=== PATIENT | female | born 1995 | race American Indian/Alaskan Native ===

== ENCOUNTER 2017-10-28 09:11 | Emergency (ER) | payer MEDICAID ==
[2017-10-28 09:31] VITALS: BP 122/76; PULSE 75; RESP 16; TEMP 97.6; O2SAT 100
--- NOTE | 2017-10-28 12:12 | C.PDOC ---
History Of Present Illness 22 y/o female presents to ED with complaints of diffuse rash over face and ears for 3 days. Patient reports she started using new scented body wash 4-5 days ago and denies chest pain, sob, fever, chills, vomiting or any other complaints at this time. Chief Complaint (Nursing): Abnormal Skin Integrity History Per: Patient History/Exam Limitations: no limitations Onset/Duration Of Symptoms: Days Current Symptoms Are (Timing): Still Present Past Medical History Reviewed: Historical Data, Nursing Documentation, Vital Signs Vital Signs: Last Vital Signs Temp 97.6 F 10/28/17 09:23 Pulse 75 10/28/17 09:23 Resp 16 10/28/17 09:23 BP 122/76 10/28/17 09:23 Pulse Ox 100 10/28/17 12:12 - Medical History PMH: No Chronic Diseases Surgical History: No Surg Hx Family History: States: No Known Family Hx - Social History Hx Alcohol Use: No Hx Substance Use: No - Immunization History Hx Tetanus Toxoid Vaccination: No Hx Influenza Vaccination: No Hx Pneumococcal Vaccination: No Review Of Systems Constitutional: Negative for: Fever, Chills Cardiovascular: Negative for: Chest Pain Respiratory: Negative for: Shortness of Breath Gastrointestinal: Negative for: Nausea, Vomiting Skin: Positive for: Rash Neurological: Negative for: Weakness, Numbness Physical Exam - Physical Exam Appears: Non-toxic, No Acute Distress Skin: Warm, Dry, Rash (Mild maculopapular rash to face, ears and lower back ) Head: Atraumatic, Normacephalic Eye(s): bilateral: Normal Inspection Nose: Normal Oral Mucosa: Moist Tongue: Normal Appearing, No Swelling Lips: Normal Appearing, No Swelling Throat: Normal, No Erythema, No Exudate Neck: Normal ROM, Supple Chest: Symmetrical Cardiovascular: Rhythm Regular Respiratory: Normal Breath Sounds, No Rales, No Rhonchi, No Wheezing Extremity: Normal ROM, Capillary Refill (<2 seconds) Neurological/Psych: Oriented x3, Normal Speech, Normal Motor, Normal Sensation ED Course And Treatment O2 Sat by Pulse Oximetry: 100 (RA) Pulse Ox Interpretation: Normal Disposition - Disposition Referrals: Vipin Mcdonald [Medical Doctor] - Disposition: HOME/ ROUTINE Disposition Time: 09:50 Condition: GOOD Additional Instructions: Thank you for letting us take care of you today. The emergency medical care you received today was directed at your acute symptoms. If you were prescribed any medication, please fill it and take as directed. It may take several days for your symptoms to resolve. Return to the Emergency Department if your symptoms worsen, do not improve, or if you have any other problems. Please contact your doctor or call one of the physicians/clinics you have been referred to that are listed on the Patient Visit Information form that is included in your discharge packet. Bring any paperwork you were given at discharge with you along with any medications you are taking to your follow up visit. Our treatment cannot replace ongoing medical care by a primary care provider (PCP) outside of the emergency department. [facility]. Follow up with your doctor in 2-3 days for re-evaluation and further management. Prescriptions: predniSONE [Prednisone] 40 mg PO DAILY #10 tab Instructions: Urticaria (ED) Forms: Work Excuse - Clinical Impression Clinical Impression: Skin irritation - Scribe Statement The provider has reviewed the documentation as recorded by the Peter Abad All medical record entries made by the Peter were at my direction and personally dictated by me. I have reviewed the chart and agree that the record accurately reflects my personal performance of the history, physical exam, medical decision making, and the department course for this patient. I have also personally directed, reviewed, and agree with the discharge instructions and disposition.
== END 2017-10-28 10:05 | disposition home or self-care (01) ==
LOC: C.ER 09:11
DX: R23.8 Other skin changes (principal)

== ENCOUNTER 2017-12-07 20:21 | Emergency (ER) | payer MEDICAID ==
[2017-12-07 20:40] VITALS: BP 136/83; PULSE 88; RESP 16; TEMP 98.7; O2SAT 100
--- NOTE | 2017-12-07 21:43 | C.PDOC ---
History Of Present Illness 22 years old patient presents to ED with complaints of sore throat that began today. Patient states has frequent strep throats. Denies any other physical complaints. Time Seen by Provider: 12/07/17 20:44 Chief Complaint (Nursing): ENT Problem History Per: Patient History/Exam Limitations: None Onset/Duration Of Symptoms: Hrs Current Symptoms Are (Timing): Still Present Symptoms Have Been: Continuous Anticoagulant/Antiplatlet Use?: No Past Medical History Reviewed: Historical Data, Nursing Documentation, Vital Signs Vital Signs: Last Vital Signs Temp 98.7 F 12/07/17 20:38 Pulse 88 12/07/17 20:38 Resp 16 12/07/17 20:38 BP 136/83 12/07/17 20:38 Pulse Ox 100 12/07/17 21:47 - Medical History PMH: No Chronic Diseases Surgical History: No Surg Hx Family History: States: No Known Family Hx - Social History Hx Alcohol Use: No Hx Substance Use: No - Immunization History Hx Tetanus Toxoid Vaccination: No Hx Influenza Vaccination: No Hx Pneumococcal Vaccination: No Review Of Systems Constitutional: Negative for: Fever ENT: Positive for: Other (Sore throat ) Gastrointestinal: Negative for: Nausea, Vomiting, Diarrhea Neurological: Negative for: Weakness, Numbness Physical Exam - Physical Exam Appears: Well, Non-toxic, No Acute Distress, Other (Awake and alert) Skin: Normal Color, Warm, Dry Head: Atraumatic, Normacephalic Eye(s): bilateral: Normal Inspection Oral Mucosa: Moist Throat: Normal, No Erythema, No Exudate, No Drooling, No Mass Neck: Supple Lymphatic: No Adenopathy Chest: Symmetrical, No Tenderness Cardiovascular: Rhythm Regular Neurological/Psych: Oriented x3, Normal Speech, Normal Cognition ED Course And Treatment O2 Sat by Pulse Oximetry: 100 (RA) Pulse Ox Interpretation: Normal Progress Note: Ordered throat cultures and swab for rapid strep. Rapid strep results are negative. Disposition - Disposition Referrals: Viv Rocha MD [Staff Provider] - Hal Shin MD [Staff Provider] - Disposition: HOME/ ROUTINE Disposition Time: 21:40 Condition: STABLE Additional Instructions: Follow up with PMD and ENT within 1-2 days. Return to ED if feel worse. 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 - Scribe Statement The provider has reviewed the documentation as recorded by the Karonibjabier Chang All medical record entries made by the Scribjabier were at my direction and personally dictated by me. I have reviewed the chart and agree that the record accurately reflects my personal performance of the history, physical exam, medical decision making, and the department course for this patient. I have also personally directed, reviewed, and agree with the discharge instructions and disposition.
== END 2017-12-07 21:53 | disposition home or self-care (01) ==
LOC: C.ER 20:21
DX: J02.9 Acute pharyngitis, unspecified (principal)

== ENCOUNTER 2017-12-16 11:43 | Emergency (ER) | payer MEDICAID ==
[2017-12-16 12:18] VITALS: RESP 18; O2SAT 100
--- NOTE | 2017-12-16 14:11 | C.PDOC ---
History Of Present Illness 22yo female, presents t ED with complaints of bodyaches and congestion for the past 2 weeks. She reports she had an infection and was seen by her PCP Dr. Rocha who prescribed her amoxicillin. Patient states she stopped taking Amoxicillin yesterday because she was taking other OTC medication Theraflu and was concerned of possible interactions. She denies any chest pain, shortness of breath, nausea, vomiting. Patient states she tried to see Dr Rocha but his office did not open until 1330 today. Time Seen by Provider: 12/16/17 13:39 Chief Complaint (Nursing): Anxiety History Per: Patient History/Exam Limitations: no limitations Onset/Duration Of Symptoms: Days Current Symptoms Are (Timing): Still Present Location Of Pain: Throat, Diffuse Myalgias Associated Symptoms: Sore Throat, Cough, Myalgias Additional History Per: Patient Past Medical History Reviewed: Historical Data, Nursing Documentation, Vital Signs Vital Signs: Last Vital Signs Temp 98.6 F 12/16/17 14:28 Pulse 77 12/16/17 14:28 Resp 18 12/16/17 14:28 BP 109/77 12/16/17 14:28 Pulse Ox 100 12/16/17 14:28 - Medical History PMH: No Chronic Diseases Surgical History: No Surg Hx Family History: States: No Known Family Hx - Social History Hx Alcohol Use: No Hx Substance Use: No - Immunization History Hx Tetanus Toxoid Vaccination: No Hx Influenza Vaccination: No Hx Pneumococcal Vaccination: No Review Of Systems Constitutional: Positive for: Malaise. Negative for: Fever, Chills Eyes: Negative for: Redness ENT: Positive for: Throat Pain. Negative for: Ear Pain Cardiovascular: Negative for: Chest Pain Respiratory: Positive for: Cough. Negative for: Shortness of Breath, Sputum Gastrointestinal: Negative for: Vomiting, Abdominal Pain, Diarrhea Genitourinary: Negative for: Dysuria Skin: Negative for: Rash Neurological: Negative for: Headache, Dizziness Physical Exam - Physical Exam Appears: Well, Non-toxic, No Acute Distress Skin: Normal Color, Warm, Dry Head: Atraumatic, Normacephalic Eye(s): bilateral: Normal Inspection, PERRL, EOMI Ear(s): Bilateral: Normal (no erythema) Nose: Normal Oral Mucosa: Moist Throat: Normal, No Erythema, No Exudate, No Drooling, No Mass Neck: Normal ROM, Supple Chest: Symmetrical Cardiovascular: Rhythm Regular Respiratory: Normal Breath Sounds, No Wheezing Gastrointestinal/Abdominal: Normal Exam, Soft, No Tenderness Extremity: Bilateral: Atraumatic, Normal ROM Neurological/Psych: Oriented x3, Normal Speech Gait: Steady ED Course And Treatment O2 Sat by Pulse Oximetry: 100 (RA) Pulse Ox Interpretation: Normal Medical Decision Making Medical Decision Making: Patient with multiple symptoms, likely virus. Patient already on Amoxicillin. Instruct to complete her prescribed antibiotics course and to follow up with PCP in 1-2 days. Patient is stable for discharge. Instruct she can still take OTC Motrin, Tylenol, Theraflu with antibiotic Disposition Counseled Patient/Family Regarding: Need For Followup, Rx Given - Disposition Referrals: Viv Rocha MD [Staff Provider] - Disposition: HOME/ ROUTINE Disposition Time: 14:11 Condition: STABLE Additional Instructions: Finish antibiotics given by your doctor follow up with Dr Rocha Instructions: Pharyngitis (ED), Viral Syndrome (ED) Forms: [employer] ([place]ovan), Work Excuse - POA Present On Arrival: None - Clinical Impression Clinical Impression: Influenza-like illness, Pharyngitis - PA / [employer]ER / Resident Statement MD/DO has reviewed & agrees with the documentation as recorded. - Scribe Statement The provider has reviewed the documentation as recorded by the Scribe (Olive Cook) Provider Scribe Attestation: All medical record entries made by the Scribe were at my direction and personally dictated by me. I have reviewed the chart and agree that the record accurately reflects my personal performance of the history, physical exam, medical decision making, and the department course for this patient. I have also personally directed, reviewed, and agree with the discharge instructions and disposition.
[2017-12-16 14:28] VITALS: BP 109/77; PULSE 77; TEMP 98.6
== END 2017-12-16 14:28 | disposition home or self-care (01) ==
LOC: C.ER 11:43
DX: J11.1 Influenza due to unidentified influenza virus with other respiratory manifestations (principal)